=== PATIENT | female | born 1945 | race Caucasian/White ===

== ENCOUNTER 2020-12-27 05:32 | Day surgery (SDC) | payer MEDICARE, BC ==
[2020-12-27] VITALS (10 sets, daily range): BP systolic 104–133; BP diastolic 54–91; PULSE 67–80; TEMP 97.8–98.6
[~2020-12-27] VITALS: Ht 149.9 cm; Wt 58.4 kg
[2020-12-27] MEDS ORDERED: TRULICITY1.5 MG/0.5 SQ (06:30)
[2020-12-27] MEDS ORDERED: COZAAR 50MG50 MG/TAB PO (06:31)
[2020-12-27] MEDS ORDERED: SYNTHROID0.075 MG/T PO (06:31)
[2020-12-27] MEDS ORDERED: COLESTID 1GM1 G PO (06:31)
[2020-12-27] MEDS ORDERED: ZOCOR 40MG40 MG PO (06:32)
[2020-12-27] MEDS ORDERED: LUTEIN20 M1 PO (06:32)
[2020-12-27] MEDS ORDERED: GLUCOTROL XL10 MG PO (06:32)
[2020-12-28 01:00] VITALS: BP 103/46; PULSE 78; TEMP 98.6
[2020-12-28 04:01] VITALS: BP 116/62; PULSE 75; TEMP 98.1
[2020-12-28] MEDS ORDERED: CEPHALEXIN500 M1 PO (05:53)
[2020-12-28] MEDS ORDERED: IBU600 MG PO (05:54)
[2020-12-28 08:05] VITALS: BP 132/68; BP 132/78; PULSE 76; PULSE 78; TEMP 98.1
--- NOTE | 2020-12-28 09:26 | NUR ---
0900 ALL DISCHARGE INSTRUCTIONS GIVEN TO PATIENT WITH VERBAL UNDERSTNADING NOTED. DISMISSED TO POV VIA WHEELCHAIR.
== END 2020-12-28 09:20 | disposition home or self-care (01) ==
LOC: SDCO 05:32 → OB 09:30 → SDCO 12-28 09:20
DX: N81.3 Complete uterovaginal prolapse (principal); I10 Essential (primary) hypertension; E78.5 Hyperlipidemia, unspecified; E11.9 Type 2 diabetes mellitus without complications; Z20.822 Contact with and (suspected) exposure to COVID-19; E03.9 Hypothyroidism, unspecified; Z79.84 Long term (current) use of oral hypoglycemic drugs; Z79.899 Other long term (current) drug therapy; Z80.1 Family history of malignant neoplasm of trachea, bronchus and lung
CPT/HCPCS: OP; J0690; J2405; J2704; J3010; J7120

== ENCOUNTER → 2021-03-22 | Outpatient (CLI) | payer MEDICARE, BC ==
[~2021-03-22] MED LIST: CEPHALEXIN500 M1 PO; COLESTID 1GM1 G PO; COZAAR 50MG50 MG/TAB PO; GLUCOTROL XL10 MG PO; IBU600 MG PO; LUTEIN20 M1 PO; SYNTHROID0.075 MG/T PO; TRULICITY1.5 MG/0.5 SQ; ZOCOR 40MG40 MG PO
== END ==
LOC: COL.RAD 12:33
DX: N82.0 Vesicovaginal fistula (principal)
CPT/HCPCS: 31860; A4314